=== PATIENT | male | born 1970 | race Caucasian/White ===

== ENCOUNTER 2016-04-11 10:38 | Emergency (ER) | payer OTHER ==
[~2016-04-11] VITALS: Ht 188 cm; Wt 100.9 kg
[~2016-04-11 10:38] MED LIST: HYDR-3090 PO; LANS30CA8 PO
[2016-04-11 10:45] VITALS: BP 128/85; PULSE 62; RESP 18; O2SAT 99
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
[2016-04-11] MEDS ORDERED: HYDR-4003 PO (13:27)
--- NOTE | 2016-04-11 13:35 | DRSVH ---
PROCEDURE: X-RAY FINGERS, TWO VIEWS INDICATIONS: trauma TECHNIQUE: AP hand, 2 views of the right first finger(s) acquired. COMPARISON: None. FINDINGS: Bones: No fractures or dislocations. No suspicious bony lesions. Soft tissues: No suspicious soft tissue calcifications. IMPRESSION: No fracture. No osseous lesion. If symptoms and/or clinical suspicion for pathology pers ists, further assessment with repeat radiographs or advanced imaging (e.g. CT, MRI or bone scan) may be helpful for further assessment. Dictated by: Francine Tierney MD, PhD on 04/11/2016 at 13:32 Approved by: Francine Tierney MD, PhD on 04/11/2016 at 13:33
== END 2016-04-11 13:36 | disposition home or self-care (01) ==
LOC: SED 10:38
DX: S60.011A Contusion of right thumb without damage to nail, initial encounter (principal); S30.811A Abrasion of abdominal wall, initial encounter; V86.59XA Driver of other special all-terrain or other off-road motor vehicle injured in nontraffic accident, initial encounter; Y93.55 Activity, bike riding; Y92.89 Other specified places as the place of occurrence of the external cause; Y99.8 Other external cause status; I10 Essential (primary) hypertension; Z87.891 Personal history of nicotine dependence

== ENCOUNTER 2016-04-17 10:16 | Emergency (ER) | payer OTHER ==
[~2016-04-17] VITALS: Ht 188 cm; Wt 97.7 kg
[~2016-04-17 10:16] MED LIST changes: +HYDR-4003 PO
[2016-04-17 10:21] VITALS: BP 133/89; PULSE 75; RESP 10; O2SAT 99
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
[2016-04-17] MEDS ORDERED: CYCL5TAB PO (10:44)
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
[2016-04-17] MEDS ORDERED: OXYC1TAB24 PO (11:22)
[2016-04-17] MEDS ORDERED: LIDO700A6 TP (11:22)
[2016-04-17 11:42] VITALS: BP 121/61; PULSE 62
== END 2016-04-17 11:40 | disposition home or self-care (01) ==
LOC: SED 10:16
DX: R07.81 Pleurodynia (principal); V86.59XA Driver of other special all-terrain or other off-road motor vehicle injured in nontraffic accident, initial encounter; Y92.410 Unspecified street and highway as the place of occurrence of the external cause; Y93.55 Activity, bike riding; Y99.8 Other external cause status; I10 Essential (primary) hypertension; Z87.891 Personal history of nicotine dependence